=== PATIENT | male | born 1990 | race Caucasian/White ===

== ENCOUNTER 2022-06-10 06:32 | Emergency (ER) | payer OTHER ==
[2022-06-10 06:37] VITALS: BP 136/83; PULSE 87; RESP 16; TEMP 98; BMI 27.5
[2022-06-10 09:52] LABS: BASO % 0.4 % (0-2.0); EOS % 0.5 % (0-4.5); HEMATOCRIT 41.8 % (35.4-49); HEMOGLOBIN 14.2 GM/dL (11.7-16.9); MCH 29.5 pg (25.7-33.7); MCHC 33.9 g/dl (32.0-35.9); MEAN CELL VOLUME 86.9 fl (80-96); MEAN PLT VOLUME 10.5 fl (7.5-11.1); MONO % 7.8 % (3.8-10.2); NEUT % 65.3 % (42.8-82.8); PLATELET COUNT 191 10^3/uL (134-434); RBC 4.81 M/mm3 (4.00-5.60); RDW 12.6 % (11.9-15.9); WHITE BLOOD COUNT 10.8 K/mm3 (4.0-10.0)
[2022-06-10 10:07] LABS: ALBUMIN 4.3 g/dl (3.4-5.0); BLOOD UREA NITROGEN 14.7 mg/dL (7-18); CALCIUM 8.9 mg/dL (8.5-10.1)
[2022-06-10 10:11] LABS: CREATININE 1.1 mg/dL (0.55-1.3)
[2022-06-10 10:13] LABS: BILIRUBIN,TOTAL 0.4 mg/dL (0.2-1); TOT PROT 7.6 g/dl (6.4-8.2)
== END 2022-06-10 10:10 | disposition home or self-care (01) ==
LOC: JER 06:32 → JERFT 06:32
DX: R06.02 Shortness of breath (principal); T59.811A Toxic effect of smoke, accidental (unintentional), initial encounter; J70.5 Respiratory conditions due to smoke inhalation; X00.1XXA Exposure to smoke in uncontrolled fire in building or structure, initial encounter
CPT/HCPCS: 36415; 71046-TC-FY; 80053; 82375; 85025; 99284-25

== ENCOUNTER 2022-06-11 20:08 | Emergency (ER) | payer OTHER ==
[2022-06-11 20:14] VITALS: BP 150/78; PULSE 97; RESP 18; TEMP 98; BMI 27.5
[2022-06-11] MEDS ORDERED: DIPHTH,PERTUSS(ACELL),TET 0.5 ML DISP.SYRIN IM ONE ×2 (21:25→21:48)
== END 2022-06-11 21:58 | disposition home or self-care (01) ==
LOC: JERFT 20:08
PROC: 3E0234Z Introduction of Serum, Toxoid and Vaccine into Muscle, Percutaneous Approach (ICD-10-PCS; principal; 2022-06-11)
DX: M53.3 Sacrococcygeal disorders, not elsewhere classified (principal); L08.9 Local infection of the skin and subcutaneous tissue, unspecified
CPT/HCPCS: 72100-TC-FY; 90715; 99283-25

== ENCOUNTER 2022-10-07 22:22 | Emergency (ER) | payer OTHER ==
[2022-10-07 22:32] VITALS: RESP 17; BMI 28.7
[2022-10-08] MEDS ORDERED: IBUPROFEN 600 MG TABLET (FP) PO ONE ×2 (00:13→00:45)
[2022-10-08 01:16] VITALS: BP 116/84; PULSE 75; TEMP 97.7
== END 2022-10-08 01:16 | disposition home or self-care (01) ==
LOC: JERFT 22:22 → JER 22:22
DX: M25.561 Pain in right knee (principal); W18.43XA Slipping, tripping and stumbling without falling due to stepping from one level to another, initial encounter; Y93.89 Activity, other specified; Y92.009 Unspecified place in unspecified non-institutional (private) residence as the place of occurrence of the external cause
CPT/HCPCS: 73562-TC-RT-FY; 99283-25

== ENCOUNTER 2024-03-18 20:42 | Emergency (ER) | payer OTHER ==
[2024-03-18 20:48] VITALS: PULSE 102; RESP 16; TEMP 98.8; BMI 27.5
[2024-03-18 20:49] VITALS: BP 125/81
== END 2024-03-18 22:14 | disposition home or self-care (01) ==
LOC: JERFT 20:42
DX: S89.92XA Unspecified injury of left lower leg, initial encounter (principal); X50.9XXA Other and unspecified overexertion or strenuous movements or postures, initial encounter
CPT/HCPCS: 73560-TC-LT-FY; 99283-25

== ENCOUNTER 2024-04-20 14:37 | Emergency (ER) | payer OTHER ==
[2024-04-20 15:03] VITALS: BP 131/87; PULSE 98; RESP 18; TEMP 98.1; BMI 27.5
[2024-04-20] MEDS ORDERED: ACETAMINOPHEN 500 MG TABLET (FP) ONE (15:52)
[2024-04-20] MEDS: ACETAMINOPHEN 500 MG TABLET (FP) PO ONE (15:54)
== END 2024-04-20 15:54 | disposition home or self-care (01) ==
LOC: JERFT 14:37
DX: S00.93XA Contusion of unspecified part of head, initial encounter (principal); W20.8XXA Other cause of strike by thrown, projected or falling object, initial encounter; Y99.0 Civilian activity done for income or pay
CPT/HCPCS: 99283-25